=== PATIENT | female | born 1980 | race Caucasian/White ===

== ENCOUNTER 2016-04-21 14:50 | Observation (INO) ==
[2016-04-21 18:00] LABS: Bilirubin,Urine Negative (Negative); Blood,Urine Negative (Negative); Clarity,Urine Clear (Clear); Color,Urine Yellow (Yellow); Glucose,Urine (UA) Normal (Normal); Ketones,Urine Negative (Negative); Leukocyte Esterase,Urine Negative (Negative); Nitrite,Urine Negative (Negative); Protein,Urine Negative (Neg-Trace); Specific Gravity,Urine 1.015 (1.010-1.025); Urobilinogen,Urine Normal (Normal)
[2016-04-21 19:00] LABS: Basophils % 0.5 %; Eosinophils # 0.1 K/mcL (0.0-0.6); Eosinophils % 1.6 %; Hematocrit 35.4 % (35.3-44.9); Hemoglobin 11.8 g/dL (11.5-15.4); Immature Granulocytes % 0.4 % (0-4); Lymphocytes # 1.9 K/mcL (0.6-4.6); Mean Corpuscular HGB Conc 33.3 g/dL (31.6-35.5); Mean Corpuscular Hemoglobin 26.6 pg (28.0-33.3); Mean Corpuscular Volume 79.7 fL (83.0-100.0); Mean Platelet Volume 12.3 fL (9.4-12.4); Monocytes # 0.5 K/mcL (0.0-1.3); Monocytes % 6.4 %; Neutrophils # 5.7 K/mcL (1.6-8.9); Platelet Count 115 K/mcL (140-400); Red Blood Count 4.44 M/mcL (3.82-4.97); Red Cell Distribution Width 15.4 % (11.5-14.5); Segmented Neutrophils % 68.1 %
[2016-04-21 19:12] LABS: Prothrombin Time 10.6 Seconds (9.4-12.1)
[2016-04-21 19:14] LABS: Alanine Aminotransferase 51 Units/L (0-55); Albumin 3.7 g/dL (3.5-5.0); Alkaline Phosphatase 80 Units/L (38-126); Amylase 45 Units/L (25-125); Aspartate Amino Transferase 31 Units/L (5-34); BUN/Creatinine Ratio 15 (6-26); Bilirubin,Direct 0.1 mg/dL (0.0-0.5); Bilirubin,Indirect 0.1 mg/dL (0.0-1.2); Bilirubin,Total 0.2 mg/dL (0.2-1.2); Blood Urea Nitrogen 11 mg/dL (7-20); Calcium 9.8 mg/dL (8.6-10.8); Carbon Dioxide 24 mEq/L (19-29); Chloride 104 mEq/L (98-109); Globulin 3.7 g/dL (2.4-3.5); Glucose 88 mg/dL (70-99); Lipase 39 Units/L (8-78); Osmolality,Calculated 285 (280-300); Potassium 3.9 mEq/L (3.5-4.5); Sodium 138 mEq/L (136-145); Total Protein 7.4 g/dL (6.0-8.3); eGFR For African Americans > 60 (> 60); eGFR For Non-African Americans > 60 (> 60)
[2016-04-21] MEDS ORDERED: *HR* HYDROcodone/Acet 5/325 mg TABLET PO ONE (20:52)
[2016-04-21] MEDS ORDERED: Ondansetron 4 MG/2 ML VIAL IVP ONE (21:05)
[2016-04-21] MEDS ORDERED: Nicotine 21 MG PATCH.TD24 TD SCH (22:00)
[2016-04-21] MEDS ORDERED: Nicotine 21 MG PATCH.TD24 TD ONE (22:15)
--- NOTE | 2016-04-21 22:45 | Emergency Department Note ---
Disposition Clinical Impression: Abdominal pain Qualifiers: Abdominal location: upper abdomen, unspecified Qualified Code(s): R10.10 - Upper abdominal pain, unspecified Disposition: Home, Self-Care Condition: Good General Adult HPI - General Chief complaint: ED Abdominal Pain Stated complaint: hepatitis-abd pain and swelling Time Seen by Provider: 04/21/16 18:06 Source: patient, family Limitations: no limitations Nursing Notes Reviewed: Yes Vital Signs Reviewed: Yes - History of Present Illness HPI Narrative: 35-year-old female with hepatitis C. 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 Presents today with right upper quadrant pain. She admits that she feels like she has an infection. She has had no fever. She has not taken antipyretics at home. Her symptoms have been ongoing for several days and worsening today. She admits to nausea, no vomiting. Admits to previous IV drug abuse history which contributed to her hepatitis Pain Scale: 4 - Related Data Home Medications Medication Instructions Recorded Confirmed Ascorbic Acid [Vitamin C] 500 mg PO BID 06/22/15 06/22/15 BuPROPion [Wellbutrin] 150 mg PO DAILY 06/22/15 06/22/15 Ferrous Sulfate [Iron] 325 mg PO DAILY 06/22/15 06/22/15 Previous Rx's Medication Instructions Recorded Cephalexin [Keflex] 500 mg PO QID #40 capsule 12/28/15 Amoxicillin 875 mg PO BID #20 tablet 01/22/16 Ibuprofen [Motrin] 800 mg PO Q8HR PRN #30 tablet 01/22/16 Allergies Allergy/AdvReac Type Severity Reaction Status Date / Time No Known Allergies Allergy Verified 04/21/16 16:14 All systems ED: reviewed and negative except as stated. Past Medical History - Past Medical History Medical history: Reports: hepatitis, liver disease Surgical history: Reports: appendectomy, Psychiatric history: Reports: depression QUALITY LIAISON history: Reports: no QUALITY LIAISON history - Social History Smoking Status: Current every day smoker Smokeless Tobacco Status: No Alcohol use: Reports: none Drug use: Reports: none Physical Exam Alert and oriented, no acute distress [place] warm and dry TMs clear bilaterally, extraocular muscle movements are normal, pupils equal and reactive to light Trachea midline Cardiovascular exam is without murmur, rub, gallop Pulmonary exam is good inspiratory effort, no rales, no rhonchi, no wheezing Mild right upper quadrant tenderness Back is without CVA tenderness Extremities are well perfused, no cyanosis, clubbing, edema No neurological deficit, cranial nerves II/12 grossly intact, reflexes 5/5, sensation normal - General Limitations: no limitations General appearance: alert, in no apparent distress Course Vital Signs Temperature 98.2 F 04/21/16 16:14 Pulse Rate 92 04/21/16 16:14 Respiratory Rate 18 04/21/16 16:14 Blood Pressure 157/88 04/21/16 16:14 O2 Sat by Pulse Oximetry 98 04/21/16 16:14 Temperature 98.2 F 04/21/16 16:14 Pulse Rate 93 04/21/16 22:13 Respiratory Rate 16 04/21/16 22:36 Blood Pressure 115/70 04/21/16 22:36 O2 Sat by Pulse Oximetry 97 04/21/16 22:13 Oxygen Delivery Oxygen Delivery Room Air Medical Decision Making - MDM Narrative Medical decision making narrative: Contracted gallbladder, chronic thickening. Normal transaminases. She does have active vomiting in the department. I discussed this case with the general surgeon on-call referred to gastroenterology. I discussed the case with gastroenterology who agreed with observation. Given her ongoing pain will need to monitor with time as well as provide antibiotics, supportive therapy. Vital signs stable at this time. Will be admitted for evaluation of abdominal pain and to rule out acute cholecystitis. - Lab Data Result diagrams: 04/21/16 18:49 04/21/16 18:49 Lab Results 04/21/16 04/21/16 04/21/16 Range/Units 17:50 18:49 18:49 WBC 8.4 (4.3-11.1) K/mcL RBC 4.44 (3.82-4.97) M/mcL Hgb 11.8 (11.5-15.4) g/dL Hct 35.4 (35.3-44.9) % MCV 79.7 L (83.0-100.0) fL MCH 26.6 L (28.0-33.3) pg MCHC 33.3 (31.6-35.5) g/dL RDW 15.4 H (11.5-14.5) % Plt Count 115 L (140-400) K/mcL MPV 12.3 (9.4-12.4) fL Immature Gran % 0.4 (0-4) % Seg Neutrophils % 68.1 % Lymphocytes % 23.0 % Monocytes % 6.4 % Eosinophils % 1.6 % Basophils % 0.5 % Neutrophils # 5.7 (1.6-8.9) K/mcL Lymphocytes # 1.9 (0.6-4.6) K/mcL Monocytes # 0.5 (0.0-1.3) K/mcL Eosinophils # 0.1 (0.0-0.6) K/mcL Basophils # 0.0 (0.0-0.2) K/mcL PT 10.6 (9.4-12.1) Seconds INR 1.0 Sodium (136-145) mEq/L Potassium (3.5-4.5) mEq/L Chloride (98-109) mEq/L Carbon Dioxide (19-29) mEq/L BUN (7-20) mg/dL Creatinine (0.57-1.11) mg/dL Est GFR ( Amer) (> 60) Est GFR (Non-Af Amer) (> 60) BUN/Creatinine Ratio (6-26) Glucose (70-99) mg/dL Calculated Osmolality (280-300) Calcium (8.6-10.8) mg/dL Total Bilirubin (0.2-1.2) mg/dL Direct Bilirubin (0.0-0.5) mg/dL Indirect Bilirubin (0.0-1.2) mg/dL AST (5-34) Units/L ALT (0-55) Units/L Alkaline Phosphatase (38-126) Units/L Serum Total Protein (6.0-8.3) g/dL Albumin (3.5-5.0) g/dL Globulin (2.4-3.5) g/dL Albumin/Globulin Ratio (1.1-2.2) Amylase (25-125) Units/L Lipase (8-78) Units/L Urine Color Yellow (Yellow) Urine Clarity Clear (Clear) Urine pH 6.0 (5.0-8.0) pH Units Ur Specific [place] 1.015 (1.010-1.025) Urine Protein Negative (Neg-Trace) mg/dL Urine Glucose (UA) Normal (Normal) mg/dL Urine Ketones Negative (Negative) mg/dL Urine Blood Negative (Negative) Urine Nitrite Negative (Negative) Urine Bilirubin Negative (Negative) Urine Urobilinogen Normal (Normal) mg/dL Ur Leukocyte Esterase Negative (Negative) Ur Culture Indicated? NO (NO) 04/21/16 Range/Units 18:49 WBC (4.3-11.1) K/mcL RBC (3.82-4.97) M/mcL Hgb (11.5-15.4) g/dL Hct (35.3-44.9) % MCV (83.0-100.0) fL MCH (28.0-33.3) pg MCHC (31.6-35.5) g/dL RDW (11.5-14.5) % Plt Count (140-400) K/mcL MPV (9.4-12.4) fL Immature Gran % (0-4) % Seg Neutrophils % % Lymphocytes % % Monocytes % % Eosinophils % % Basophils % % Neutrophils # (1.6-8.9) K/mcL Lymphocytes # (0.6-4.6) K/mcL Monocytes # (0.0-1.3) K/mcL Eosinophils # (0.0-0.6) K/mcL Basophils # (0.0-0.2) K/mcL PT (9.4-12.1) Seconds INR Sodium 138 (136-145) mEq/L Potassium 3.9 (3.5-4.5) mEq/L Chloride 104 (98-109) mEq/L Carbon Dioxide 24 (19-29) mEq/L BUN 11 (7-20) mg/dL Creatinine 0.72 (0.57-1.11) mg/dL Est GFR ( Amer) > 60 (> 60) Est GFR (Non-Af Amer) > 60 (> 60) BUN/Creatinine Ratio 15 (6-26) Glucose 88 (70-99) mg/dL Calculated Osmolality 285 (280-300) Calcium 9.8 (8.6-10.8) mg/dL Total Bilirubin 0.2 (0.2-1.2) mg/dL Direct Bilirubin 0.1 (0.0-0.5) mg/dL Indirect Bilirubin 0.1 (0.0-1.2) mg/dL AST 31 (5-34) Units/L ALT 51 (0-55) Units/L Alkaline Phosphatase 80 (38-126) Units/L Serum Total Protein 7.4 (6.0-8.3) g/dL Albumin 3.7 (3.5-5.0) g/dL Globulin 3.7 H (2.4-3.5) g/dL Albumin/Globulin Ratio 1.0 L (1.1-2.2) Amylase 45 (25-125) Units/L Lipase 39 (8-78) Units/L Urine Color (Yellow) Urine Clarity (Clear) Urine pH (5.0-8.0) pH Units Ur Specific [place] (1.010-1.025) Urine Protein (Neg-Trace) mg/dL Urine Glucose (UA) (Normal) mg/dL Urine Ketones (Negative) mg/dL Urine Blood (Negative) Urine Nitrite (Negative) Urine Bilirubin (Negative) Urine Urobilinogen (Normal) mg/dL Ur Leukocyte Esterase (Negative) Ur Culture Indicated? (NO)
[2016-04-22] MEDS: Ondansetron 4 MG/2 ML VIAL IVP PRN ×2 (01:24→14:37)
[2016-04-22] MEDS: 0.9 % Sodium Chloride 1,000 ML IVC SCH ×2 (01:26→14:37)
--- NOTE | 2016-04-22 04:54 | Internal Med History&Physical ---
Date of Encounter: 04/22/16 Time of Encounter: 04:51 Assessment and Plan (1) Chronic cholecystitis Current visit: Yes Status: Acute Right upper quadrant pain and vomiting suspect that this is related to chronic cholecystitis. No persistent pain fever or leukocytosis. HIDA Scan performed to see if she have acute cholecystitis or not. I will not start any antibiotics. There is mild violation of the common bile duct. However bilirubin and alkaline phosphatase are normal, doubt choledocholithiasis Internal Medicine - H&P: HPI Chief complaint: abdominal pain and vomiting History of present illness: Ms. Jon is a 35 year old female with history of hepatitis C virus related to IV drug abuse presents an emergency room today with abdominal pain and vomiting. For the past 3 days patient has been having intermittent right upper quadrant abdominal pain associated with nausea and nonblocking on the most vomiting. She has been unable to keep food down. She denies any fever or chills. Today patient has been feeling lightheaded at work so presented to the emergency room for further evaluation. Imaging is most suggestive of chronic cholecystitis. Patients had prior similar episode last year and was advised to have a cholecystectomy. Patient denies any constant pain. No change in the color of urine or stool or eyes Past Med Surg Social Fam HX - Past Medical History Medical history: hepatitis, liver disease Psychiatric history: depression - Past Surgical History Surgical History: appendectomy, - Social History Smoking Status: Current every day smoker Packs per day: 1 Smokeless Tobacco Status: No Alcohol use: none Drug use: none - Family History Mother Living Status: Still Living Hx Family Cardiac Disorders: Yes (CHF,HTN) Hx Family Respiratory Disorders: Yes (COPD) Hx Family Cancer: No Hx Family GI Disorders: Yes (Gastritis) Hx Family Endocrine Disorder: No Father Living Status: Still Living Hx Family Cardiac Disorders: Yes (HTN) Hx Family Endocrine Disorder: Yes (DM) Internal Medicine - H&P: Meds Ascorbic Acid [Vitamin C] 500 mg PO BID 06/22/15 [History] BuPROPion [Wellbutrin] 150 mg PO DAILY 06/22/15 [History] Ferrous Sulfate [Iron] 325 mg PO DAILY 06/22/15 [History] Cephalexin [Keflex] 500 mg PO QID #40 capsule 12/28/15 [Rx] Amoxicillin 875 mg PO BID #20 tablet 01/22/16 [Rx] Ibuprofen [Motrin] 800 mg PO Q8HR PRN #30 tablet 01/22/16 [Rx] Allergies No Known Allergies Allergy (Verified 04/21/16 16:14) All Systems PM: A 10-system review of systems was performed and is negative for pertinent findings except as documented above in the HPI. Review of systems: 10 point ROS is negative except for HPI. - Constitutional Vitals: Temp Pulse Resp BP Pulse Ox 98.5 F 74 18 103/68 96 04/22/16 03:46 04/22/16 03:46 04/22/16 03:46 04/22/16 03:46 04/22/16 03:46 Exam: Gen.: patient is alert and oriented times 3 not in distress. Cardiac: normal S1 S2 no additional sounds or murmurs. Chest: Clear to auscultation bilaterally no wheezing abdomen: soft nontender nondistended negative roberto sign lower extremity: lax calf muscles Internal Med - H&P Results - Labs CBC & Chem 7: 04/21/16 18:49 04/21/16 18:49
[2016-04-22] MEDS: *HR* Morphine 2 MG/ML SYRINGE IVP PRN ×2 (05:46→14:36)
[2016-04-22] MEDS ORDERED: Famotidine 20 MG/2 ML VIAL IVP SCH (06:00)
[2016-04-22 06:04] LABS: Eosinophils % 2.6 %; Hemoglobin 11.1 g/dL (11.5-15.4); Mean Corpuscular Volume 80.4 fL (83.0-100.0); Mean Platelet Volume 13.4 fL (9.4-12.4); Red Cell Distribution Width 15.5 % (11.5-14.5)
[2016-04-22 06:06] LABS: Basophils % 0.5 %; Eosinophils # 0.2 K/mcL (0.0-0.6); Hematocrit 33.2 % (35.3-44.9); Immature Granulocytes % 0.4 % (0-4); Immature Platelets 13.7 % (1.1-6.1); Lymphocytes # 2.3 K/mcL (0.6-4.6); Lymphocytes % 30.4 %; Mean Corpuscular HGB Conc 33.4 g/dL (31.6-35.5); Mean Corpuscular Hemoglobin 26.9 pg (28.0-33.3); Monocytes # 0.6 K/mcL (0.0-1.3); Monocytes % 8.2 %; Neutrophils # 4.3 K/mcL (1.6-8.9); Platelet Count 107 K/mcL (140-400); Red Blood Count 4.13 M/mcL (3.82-4.97); Segmented Neutrophils % 57.9 %
[2016-04-22 06:36] LABS: BUN/Creatinine Ratio 16 (6-26); Bilirubin,Direct 0.1 mg/dL (0.0-0.5); Bilirubin,Total 0.2 mg/dL (0.2-1.2); Blood Urea Nitrogen 10 mg/dL (7-20); Calcium 8.9 mg/dL (8.6-10.8); Carbon Dioxide 22 mEq/L (19-29); Chloride 107 mEq/L (98-109); Glucose 99 mg/dL (70-99); Lipase 36 Units/L (8-78); Magnesium 1.7 mg/dL (1.6-2.6); Osmolality,Calculated 283 (280-300); Potassium 3.7 mEq/L (3.5-4.5); Sodium 137 mEq/L (136-145); eGFR For African Americans > 60 (> 60); eGFR For Non-African Americans > 60 (> 60)
[2016-04-22] MEDS ORDERED: *HR* Heparin 5,000 UNIT/ML VIAL SQ SCH (07:00)
[2016-04-22 07:43] VITALS: BP 105/68
--- NOTE | 2016-04-22 09:00 | Gastroenterology Consult Note ---
Date of Encounter: 04/22/16 Time of Encounter: 10:20 - Assessment and plan (1) Hepatitis C virus infection Current Visit: Yes Status: Chronic Assessment and plan: + viral load, genotype 1a/1b. Check fibrosis score. Hx of IVDU, clean, per patient, since 2012. Normal LFTs. Qualifiers: Viral hepatitis chronicity: chronic Hepatic coma status: without hepatic coma Qualified Code(s): B18.2 - Chronic viral hepatitis C (2) Abdominal pain Current Visit: Yes Status: Acute Assessment and plan: Likely related to chronic cholecystitis. Hospital management - HIDA scan has been ordered. Consider EGD if HIDA negative. Add PPI during hospital course. Qualifiers: Abdominal location: right upper quadrant Qualified Code(s): R10.11 - Right upper quadrant pain (3) Microcytosis Current Visit: Yes Status: Acute Assessment and plan: w/mild anemia, likely dilutional. Check iron profile. (4) Thrombocytopenia Current Visit: Yes Status: Chronic Assessment and plan: Mild, no evidence of cirrhosis on imaging. (5) Diarrhea Current Visit: Yes Status: Acute Assessment and plan: stool w/u Qualifiers: Diarrhea type: unspecified type Qualified Code(s): R19.7 - Diarrhea, unspecified - Time Spent With Patient Total time spent is greater than 50% in coordination of care (as documented) at patient's floor/unit and/or counseling patient: less than 15 minutes GI History of Present Illness - Data of Consult Patient: known to practice within the last 3 years Consult date: 04/22/16 Requesting Physician: Melida Means MD - Consult Narrative Reason for consult: RUQ abd pain, Hep C History of present illness: Ms. Jon is a 35 year old female with a PMH of CHC r/t IVDU. She presented to the ER with intermittent RUQ abdominal pain, N/V for the past 3 days. For the past 3 days patient has been having intermittent right upper quadrant abdominal pain associated with nausea and vomiting. She has been unable to keep food down. She denies any fever or chills. Today patient has been feeling lightheaded at work so presented to the emergency room for further evaluation. Imaging is most suggestive of chronic cholecystitis. Patients had prior similar episode last year and was advised to have a cholecystectomy. Patient denies any constant pain. No change in the color of urine or stool. She was last seen in GI clinic 10/2015 at which time a Cscope was recommended for complaint of diarrhea. Her sister has Crohn's disease. She did not complete the Cscope as ordered. Genotype 1a/1b, viral load > 6 mil. Her labs show mild anemia , microcytosis and thrombocytopenia. Abdominal imaging does not show changes consistent with cirrhosis. Normal LFTs. She states diarrhea/loose stools prior to admission with 'everything I eat'. Increase in GERD symptoms prior to admission. Denies blood in stool or hematemesis. Colonoscopy: None noted EGD: None noted Past Med Surg Social Fam HX - Past Medical History Medical history: hepatitis, liver disease Psychiatric history: depression - Past Surgical History Surgical History: appendectomy, - Social History Smoking Status: Current every day smoker Packs per day: 1 Smokeless Tobacco Status: No Alcohol use: none Drug use: none - Family History Mother Living Status: Still Living Hx Family Cardiac Disorders: Yes (CHF,HTN) Hx Family Respiratory Disorders: Yes (COPD) Hx Family Cancer: No Hx Family GI Disorders: Yes (Gastritis) Hx Family Endocrine Disorder: No Father Living Status: Still Living Hx Family Cardiac Disorders: Yes (HTN) Hx Family Endocrine Disorder: Yes (DM) - Gastrointestinal NSAID use: None noted Anticoagulation Use: Heparin Number of BM Per Day: 1-6 Gastrointestinal: Present: abdominal pain, diarrhea, dyspepsia, heartburn, nausea, vomiting - Constitutional Constitutional: as per HPI - EENT Eyes: as per HPI Ears: Present: as per HPI Nose, mouth and throat: Present: as per HPI - Cardiovascular Cardiovascular ROS: Present: as per HPI - Respiratory Respiratory IM: Present: as per HPI - Neurological ROS Neurological GI: Present: dizziness - Hematologic/Lymphatic Hematologic/Lymphatic pediatric: Present: as per HPI - Musculoskeletal Musculoskeletal ROS GI: Present: as per HPI - Integumentary Integumentary GI: Present: as per HPI - Psychiatric ROS Psychiatric GI: Present: as per HPI - Endocrine Endocrine IM: Present: as per HPI - Constitutional Vitals: Temp Pulse Resp BP Pulse Ox 98.3 F 82 15 105/68 95 04/22/16 07:40 04/22/16 07:40 04/22/16 07:40 04/22/16 07:40 04/22/16 07:40 General appearance: Present: cooperative, A&O X 3, no acute distress, answers questions appropriately - Head Head exam: Present: atraumatic, normocephalic - Eye Eye exam: Present: normal appearance, sclera anicteric - ENT ENT exam: Present: mucous membranes moist - Neck Neck exam general surgery: Present: normal inspection, trachea midline - Respiratory Respiratory exam: Present: CTAB - Cardiovascular Cardiovascular exam: Present: RRR, +S1, +S2 - GI/Abdominal GI/Abdominal exam: Present: soft, no peritoneal signs - Rectal Rectal exam: Present: deferred - Extremities Exam Extremities exam: Present: warm - Neurological Exam Neurological exam: Present: no focal deficits - Psychiatric Psychiatric exam: Present: normal affect, normal mood - Skin Skin exam: Present: dry, intact, normal color, warm Results - Labs CBC & Chem 7: 04/22/16 05:32 04/22/16 05:32 Labs: Last Result Calcium 8.9 mg/dL (8.6-10.8) 04/22/16 05:32 Entire Visit Hgb 11.1 g/dL (11.5-15.4) L 04/22/16 05:32 Hct 33.2 % (35.3-44.9) L 04/22/16 05:32 PT 10.6 Seconds (9.4-12.1) 04/21/16 18:49 Total Bilirubin 0.2 mg/dL (0.2-1.2) 04/22/16 05:32 AST 31 Units/L (5-34) 04/21/16 18:49 ALT 51 Units/L (0-55) 04/21/16 18:49 Amylase 45 Units/L (25-125) 04/21/16 18:49 Lipase 36 Units/L (8-78) 04/22/16 05:32 - ABG ABG results: PT/INR, D-dimer PT 10.6 Seconds (9.4-12.1) 04/21/16 18:49 Consult Discharge Plan - Plan Referrals: Shanon Valero, [employer] [Primary Care Provider] -
[2016-04-22] MEDS ORDERED: Pantoprazole 40 MG VIAL IV SCH (11:30)
[2016-04-22 12:15] LABS: Thyroid Stimulating Hormone 4.498 mcIU/mL (0.350-4.840)
--- NOTE | 2016-04-22 16:33 | Discharge Summary ---
Date of Encounter: 04/22/16 Time of Encounter: 16:31 - Discharge Diagnosis (1) Chronic cholecystitis Priority: Primary Status: Chronic (2) Hepatitis C virus infection Priority: Secondary Status: Chronic Qualifiers: Viral hepatitis chronicity: chronic Hepatic coma status: without hepatic coma Qualified Code(s): B18.2 - Chronic viral hepatitis C - Discharge Medications Prescriptions: Ibuprofen [Motrin] 200 mg PO Q8H PRN #20 tablet PRN Reason: moderate pain Omeprazole [PriLOSEC] 40 mg PO DAILY #30 cap Oxycodone HCl/Acetaminophen [Percocet 5-325 mg Tablet] 1 each PO Q6H PRN #20 tablet PRN Reason: Severe Pain Home Medications: Bupropion HCl [Wellbutrin Xl] 300 mg PO DAILY 04/22/16 [History] Ibuprofen [Motrin] 200 mg PO Q8H PRN #20 tablet 04/22/16 [Rx] Omeprazole [PriLOSEC] 40 mg PO DAILY #30 cap 04/22/16 [Rx] Oxycodone HCl/Acetaminophen [Percocet 5-325 mg Tablet] 1 each PO Q6H PRN #20 tablet 04/22/16 [Rx] Allergies/Adverse Reactions: Allergies No Known Allergies Allergy (Verified 04/21/16 16:14) Procedures/tests Complete & Pending: Procedures Performed prior 72 hours Category Date Time Status NM hepatobiliary w drug [NM] Stat Exams 04/22/16 01:02 Completed Date of admission: 04/21/16 22:38 Primary care physician: Nini Kim Consults: 04/22/16 01:02 Consult to Gastroenterology [CONS] Routine Consulting Provider: Gastroenterology Kristi Reason for Consult: CHRONIC CHOLECYSTITIS Call Completed: Yes Discharging clinician: Melida Means Anticipated date of discharge: 04/22/16 - Patient Status Disposition: Home, Self-Care Condition: Good Functional capacity at discharge: independent ambulation Overall status at discharge: patient is progressing back to baseline - Discharge Instructions Instructions: Cholecystitis (DC), Gallbladder Ejection Fraction (GEN), Acute Abdominal Pain (DC) Follow Up With: Darrell Moreno DO [Partnered Physician] - Shanon Valero CNP [Primary Care Provider] - Gelacio Solorzano MD [Partnered Physician] - Forms: ED Satisfaction Letter, Work/School Release Additional Instructions: F/up with GI as scheduled F/up with [facility] in 2-3 weeks - Diet and Activity Activity: resume usual activities as tolerated Diet: low fat, low cholesterol Hospital course: Ms. Jon is a 35 year old female with history of hepatitis C, cirrhosis was admitted with nausea, vomiting and right upper quadrant abdominal pain. Initial labs in the emergency room showed no acute abnormality. Liver function tests were noted to be within normal limits. Right upper quadrant ultrasound showed no gallstones and it was inconclusive for cholecystitis. Nuclear medicine biliary scan was done which showed normal uptake by the liver with decreased ejection fraction from gallbladder, suggestive of chronic cholecystitis. Patient significantly improved the next day and wanted to be discharged. GI was consulted and recommended no acute intervention. Patient is advised to follow up with GI and surgery as an outpatient to follow up on the possibility of chronic cholecystitis and low-fat/low-cholesterol diet was reinforced. She verbalized understanding and is otherwise medically stable for discharge. - Time Spent with Patient Total time spent providing and/or coordinating discharge services: Greater than 30 minutes (45 min) - Constitutional Vitals: Temp Pulse Resp BP Pulse Ox 98.3 F 82 15 105/68 95 04/22/16 07:40 04/22/16 07:40 04/22/16 07:40 04/22/16 07:40 04/22/16 07:40 General appearance: Present: A&O X 3, answers questions appropriately - Respiratory Respiratory exam: Present: CTAB. Absent: accessory muscle use, rales, rhonchi, wheezes - GI/Abdominal GI/Abdominal exam: Present: normal bowel sounds, soft, no peritoneal signs. Absent: distended, tenderness
== END 2016-04-22 17:48 | disposition home or self-care (01) ==
LOC: 3ANU 14:50 → EMEROO 14:50 → SUATTDRO 22:38 → 3ANU 22:45
PROVIDERS: ADMIT Hospitalist; ATTEND Internal Medicine